=== PATIENT | female | born 1995 | race Caucasian/White ===

== ENCOUNTER 2023-01-07 13:06 | Day surgery (SDC) | payer OTHER, SELFPAY ==
--- NOTE | 2023-01-07 13:13 | US_ITS ---
[address] [address] Patient Name: JANINE WATERS MRN: [id number] date: 1995 Sex: F Assigned Patient Location: US Current Patient Location: Accession/Order Number: [id number] Exam Date: 01/07/2023 14:26 Report Date: 01/07/2023 15:27 At the request of: BRANDI ARANGO Procedure: US biopsy thyroid EXAMINATION: US biopsy thyroid bilateral HISTORY: Thyroid Nodule COMPARISON: No relevant comparison available. TECHNIQUE: After obtaining informed consent, an ultrasound-guided biopsy was performed in the usual sterile manner. FINDINGS: RIGHT: IMAGING: Ultrasound BIOPSY NEEDLE: 25-gauge 2 inch SPECIMEN TYPE, #, LOCATION: 3 fine-needle aspirates, 2.2 x 1.1 x 1.5 cm thyroid nodule MEDICATION: 3 cc 1% buffered lidocaine COMPLICATIONS: None. LABORATORY: As ordered by referring clinician OTHER: Negative. LEFT: IMAGING: Ultrasound BIOPSY NEEDLE: 25-gauge 2 inch SPECIMEN TYPE, #, LOCATION: 4 fine-needle aspirates, 2.2 x 0.7 x 1.4 cm thyroid nodule MEDICATION: 4 cc 1% buffered lidocaine COMPLICATIONS: None. LABORATORY: As ordered by referring clinician OTHER: Negative. US/US biopsy thyroid IMPRESSION: Uneventful ultrasound guided biopsy of 2 separate thyroid nodules, one in the right, one in the left. The patient was instructed to obtain follow up care and biopsy results from the referring physician. Electronically authenticated by: TERI MIJARES Date: 01/07/2023 15:27
[2023-01-07 13:20] VITALS: BP 138/84; PULSE 87; O2SAT 100
[2023-01-07] MEDS: LIDOCAINE HCL 10 ML, SODIUM BICARBONATE 1 MEQ INJ (14:25)
== END 2023-01-07 14:55 | disposition home or self-care (01) ==
LOC: US 13:06
PROVIDERS: Radiology Diagnostic Radiology; Visit Provider Otolaryngology
DX: E04.1 Nontoxic single thyroid nodule (principal)
CPT/HCPCS: 10005; 10006; 88173